=== PATIENT | female | born 1960 | race Caucasian/White ===

== ENCOUNTER 2020-05-16 09:00 | Day surgery (SDC) | payer OTHER ==
[~2020-05-16 09:00] MED LIST: CELEXA20 MG PO; CETIRIZINE HCL10 MG PO; CYCLOBENZAPRINE10 MG PO; MOBIC7.5 MG PO; PRILOSEC20 MG PO
[2020-05-16] MEDS ORDERED: PERCOCET 5-3251 EACH PO (11:07)
[2020-05-17 05:35] LABS: BASOPHIL 0.1 % (0-2); EOSINOPHIL 0 % (0-5); HCT 31.9 % (37.0-47.0); HGB 10.1 g/dl (12.5-16.0); LYMPHOCYTE 8.3 % (15-48); MCH 30.1 pg (25.0-31.0); MCHC 31.7 g/dL (32.0-36.0); MCV 94.9 fL (78.0-100.0); MONOCYTE 5.8 % (0-12); MPV 8.2 fL (6.0-9.5); NEUTROPHIL 85.2 % (41-80); NRBC 0; PLT 188 K/uL (150-400); RBC 3.36 M/uL (4.20-5.40); RDW 12.2 % (11.5-14.0); WBC 13.8 K/uL (4.0-10.5)
[2020-05-17 05:56] LABS: BUN/CREAT RATIO (CALC) 18.3 RATIO; CREATININE 0.6 mg/dL (0.51-0.95); POTASSIUM 4.4 mmol/L (3.5-5.1)
[2020-05-17] MEDS ORDERED: FEOSOL325 MG PO (09:19)
[2020-05-17] MEDS ORDERED: ASPIRIN81 MG PO (09:19)
[2020-05-17] MEDS ORDERED: 3IN1 COMMODE XX (09:20)
[2020-05-17] MEDS ORDERED: ULTRA-LIGHT RO1 EACH XX (09:20)
--- NOTE | 2020-05-17 09:48 | NUR ---
PT TO D/C HOME THIS DATE WITH SPOUSE. PT. REQUESTS KORT TO HOME - [place] TO DELIVER A RO[facility]ING [facility]ALKER UPON DISCHARGE.
== END 2020-05-17 13:05 | disposition home health service (06) ==
LOC: FMS 09:00 → FAS 09:00 → FMS 10:59 → FAS 11:45 → EDBD 11:45 → FAS 05-17 13:05
PROVIDERS: Orthopaedic Surgery
DX: M17.11 Unilateral primary osteoarthritis, right knee (principal); D64.9 Anemia, unspecified; Z88.1 Allergy status to other antibiotic agents; K21.9 Gastro-esophageal reflux disease without esophagitis; G47.30 Sleep apnea, unspecified; Z99.89 Dependence on other enabling machines and devices
CPT/HCPCS: 36415; 73560; 80048; 85025; 86850; 86900; 86901; 90686; 94010; 97110; 97116; 97162; 97166; 97530-GP; 97535; C1713; C1776; J0171; J1100; J1170; J1885; J2250; J2270; J2405; J2704; J2795; J3010; J7120